=== PATIENT | female | born 1945 | race Caucasian/White ===

== ENCOUNTER 2025-05-13 13:51 | Inpatient (IN) | payer MEDICARE, MEDICAID ==
[~2025-05-13] VITALS: Ht 162.6 cm; Wt 84.4 kg
--- NOTE | 2025-05-13 15:05 | ED.PDOC ---
Psychiatric HPI Comments 79 y.o female with PMHx of COPD and AFIB, presents to the ED via EMS for an evaluation of hallucinations. Patient reports seeing animals such as cats and birds in her room for the past couple days. She also reports that she sits in a rocking chair in her room but states her family tell her she has no chair in her room. Patient has no diagnosed dementia. She is alert and oriented x 4. She denies any pain, auditory hallucinations, SI, or HI. Chief Complaint: Hallucinations Time Seen by MD: 14:52 Reviewed Notes: Nurses Notes, Medications, Allergies Information Source: Patient Mode of Arrival: EMS Severity: Able to Control Self Severity of Pain: None Severity of Mental Status: Moderate Severity of Symptoms: Moderate Timing: Hours Duration: Since onset Presents with: None Ingestion: None Circumstance: None Current substance abuse: None Stressors: None History of: None Associated signs and symptoms: Hallucinations Past Medical History PAST MEDICAL HISTORY: AFIB, COPD Surgical History: Denies all surgeries MACHINE SANDER History: No Pertinent MACHINE SANDER History Family History Family History: Reviewed,noncontributory to illness Social History Smoker: Non-Smoker Alcohol: Denies ETOH Use Drugs: Denies Drug Use Lives In: Home Constitutional: denies: chills, diaphoresis, fatigue, fever, malaise, sweats, weakness, others EENTM: denies: blurred vision, double vision, ear bleeding, ear discharge, ear drainage, ear pain, ear ringing, eye pain, eye redness, hearing loss, mouth pain, mouth swelling, nasal discharge, nose bleeding, nose congestion, nose pain, photophobia, tearing, throat pain, throat swelling, voice changes, others Respiratory: denies: cough, hemoptysis, orthopnea, SOB at rest, shortness of breath, SOB with excertion, stridor, wheezing, others Cardiovascular: denies: chest pain, dizzy spells, diaphoresis, Dyspnea on exertion, edema, irregular heart beat, left arm pain, lightheadedness, palpitations, PND, syncope, others Gastrointestinal: denies: abdomen distended, abdominal pain, blood streaked bowels, constipated, diarrhea, dysphagia, difficulty swallowing, hematemesis, melena, nausea, poor appetite, poor fluid intake, rectal bleeding, rectal pain, vomiting, others Genitourinary: denies: abnormal vagina bleeding, burning, dyspareunia, dysuria, flank pain, frequency, hematuria, incontinence, pain, , vagina discharge, urgency, others Neurological: denies: dizziness, fainting, headache, left sided numbness, left sided weakness, numbness, paresthesia, pre-existing deficit, right sided numbness, right sided weakness, seizure, speech problems, tingling, tremors, weakness, others Musculoskeletal: denies: back pain, gout, joint pain, joint swelling, muscle pain, muscle stiffness, neck pain, others Integumetry: denies: bruises, change in color, change in hair/nails, dryness, laceration, lesions, lumps, rash, wounds, others Allergic/Immunocompromised: denies: Difficulty Healing, Frequent Infections, Hives, Itching, others Hematologic/Lymphatic: denies: anemia, blood clots, easy bleeding, easy bruising, swollen glands, others Endocrine: denies: excessive hunger, excessive sweating, excessive thirst, excessive urination, flushing, intolerance to cold, intolerance to heat, unexplained weight gain, unexplained weight loss, others Psychiatric: reports: others (hallucinations ); denies: anxiety, bipolar disorder, depression, hopeless, panic disorder, schizophrenia, sleepless, suicidal All Other Systems: Reviewed and Negative Physical Exam General Appearance: Moderate Distress HEENT: Normal ENT Inspection, Pharynx Normal, TMs Normal Neck: Full Range of Motion, Non-Tender, Normal, Normal Inspection Respiratory: Chest Non-Tender, Lungs Clear, No Accessory Muscle Use, No Respiratory Distress, Normal Breath Sounds Cardiovascular: No Edema, No JVD, No Murmur, No Gallop, Normal Peripheral Pulses, Regular Rate/Rhythm Breast Exam: Deferred Gastrointestinal: No Organomegaly, Non Tender, No Pulsatile Mass, Normal Bowel Sounds, Soft Genitalia: Deferred Pelvic: Deferred Rectal: Deferred Extremities: No calf tenderness, No pedal edema, Swelling (Bilateral lower extremity) Musculoskeletal : Apperance: Normal Neurologic: Alert, No Motor Deficits, No Sensory Deficits Cerebellar Function: NOT DONE Reflexes: NOT DONE Skin: Normal Color Lymphatic: No Adenopathy Was a procedure done? Was a procedure done?: No Psych Differential Dx Psych. Differential Dx: Schizoprenia Other Differentail Dx New onset dementia X-Ray, Labs, Meds, VS Vital Signs Date Time Temp Pulse Resp B/P (MAP) Pulse Ox O2 Delivery O2 Flow Rate FiO2 05/13/25 14:00 98.2 93 18 132/68 94 98.2 Lab Test 05/13/25 14:16 Range/Units White Blood Count 14.6 H 4.4-10.8 10^3/uL Red Blood Count 4.75 4.0-5.20 10^6/uL Hemoglobin 13.4 12.2-16.2 g/dL Hematocrit 41.0 36.0-46.0 % Mean Corpuscular Volume 86.3 80.0-100.0 fL Mean Corpuscular Hemoglobin 28.3 28.0-32.0 pg Mean Corpuscular Hemoglobin Concent 32.8 32.0-36.0 g/dL Red Cell Distribution Width 14.8 H 11.8-14.3 % Platelet Count 391 140-450 10^3/uL Mean Platelet Volume 9.8 6.9-10.8 fL Neutrophils (%) (Auto) 81.1 H 37.0-80.0 % Lymphocytes (%) (Auto) 10.5 10.0-50.0 % Monocytes (%) (Auto) 7.2 0.0-12.0 % Eosinophils (%) (Auto) 0.6 0.0-7.0 % Basophils (%) (Auto) 0.6 0.0-2.0 % Neutrophils # (Auto) 11.8 H 1.6-8.6 10 ^3/uL Lymphocytes # (Auto) 1.5 0.4-5.4 10 ^3/uL Monocytes # (Auto) 1.1 0-1.3 10 ^3/uL Eosinophils # (Auto) 0.1 0-0.8 10 ^3/uL Basophils # (Auto) 0.1 0-0.2 10 ^3/uL Nucleated Red Blood Cells 0.0 % Sodium Level 138 136-145 mmol/L Potassium Level 3.5 3.5-5.1 mmol/L Chloride Level 101 98-107 mmol/L Carbon Dioxide Level 27 20-31 mmol/L Anion Gap 10 5-15 Blood Urea Nitrogen 26 H 9-23 mg/dL Creatinine 0.96 0.550-1.02 mg/dL Glomerular Filtration Rate Calc 60 >90 mL/min BUN/Creatinine Ratio 27.1 H 10.0-20.0 Serum Glucose 126 H 74-106 mg/dL Calcium Level 9.6 8.7-10.4 mg/dL Troponin I High Sensitivity 14 </=34 ng/L Patient alert. Complaining of seeing objects. Vitals stable. Answering questions. Cardiac marker within normal limits. WBC slightly elevated. Hemoglobin within normal limits. Blood sugar slightly elevated. On examination she does not have bilateral lower extremity swelling. Possible urinary tract infection. Explained to the patient that she will be admitted. Continue to monitor. Time of 1ST Reevaluation: 15:00 Reevaluation 1ST: Unchanged Patient Education/Counseling: Diagnosis, Treatment, Prognosis Family Education/Counseling: No Family Present Departure 1 Departure Time of Disposition: 16:39 Impression: Primary Impression: CHF (congestive heart failure) Qualified Codes: I50.43 - Acute on chronic combined systolic (congestive) and diastolic (congestive) heart failure Additional Impressions: Hyperglycemia Urinary tract infection Qualified Codes: N30.00 - Acute cystitis without hematuria Disposition: ADMITTED INPATIENT Admit to: Med Surg Condition: Guarded Critical Care Note Critical Care Time?: No Stability Stability form required: No I personally scribed for GONZÁLEZ PALACIOS MD ([email or web address]) on 05/13/25 at 15:05. Electronically submitted by Alisa Guillen ([facility]). GONZÁLEZ PALACIOS MD May 13, 2025 15:05
[2025-05-13 15:24] LABS: Hematocrit 41.0 % (36.0-46.0); Hemoglobin 13.4 g/dL (12.2-16.2); Mean Corpuscular Hemoglobin 28.3 pg (28.0-32.0); Mean Corpuscular Volume 86.3 fL (80.0-100.0); Nucleated Red Blood Cells % 0.0 %
[2025-05-13 15:38] LABS: Chloride 101 mmol/L (98-107); Sodium 138 mmol/L (136-145)
[2025-05-13 15:39] LABS: Anion Gap 10 (5-15); Calcium 9.6 mg/dL (8.7-10.4); Carbon Dioxide 27 mmol/L (20-31)
[2025-05-13 15:44] LABS: BUN/Creatinine Ratio 27.1 (10.0-20.0)
[2025-05-13 15:49] LABS: Blood Urea Nitrogen 26 mg/dL (9-23); Glucose 126 mg/dL (74-106); Potassium 3.5 mmol/L (3.5-5.1)
[2025-05-13 18:22] VITALS: PULSE 79; RESP 17; O2SAT 93
[2025-05-13 18:48] LABS: Urine Amorphous Crystal FEW /hpf (None Seen); Urine Protein, UAD 1+ (Negative); Urine WBC Clumps PRESENT /hpf (None Seen)
[2025-05-13] MEDS: FUROSEMIDE 40 MG/4 ML VIAL IV ONE (18:51)
[2025-05-13] MEDS ORDERED: IPRATROPIUM BROM 0.5 MG/2.5ML INH SOL NEB PRN (22:15)
[2025-05-13] MEDS ORDERED: SODIUM CHLORIDE 0.9% 1,000 ML IV ONE (22:15)
[2025-05-13] MEDS ORDERED: ALBUTEROL SULF 2.5 MG/0.5ML(0.5%) NEB SOLN NEB PRN (22:15)
[2025-05-13 22:37] LABS: Alanine Aminotransferase 15.0 U/L (7-40); Albumin 4.3 g/dL (3.2-4.8); Bilirubin, Direct 0.3 mg/dL (<0.3); Bilirubin, Total 0.7 mg/dL (0.2-1.0); Total Protein 7.6 g/dL (5.7-8.2)
[2025-05-13 22:41] LABS: Alkaline Phosphatase 235.0 U/L (46-116)
[2025-05-13 22:47] VITALS: BP 117/36; PULSE 79; RESP 17; TEMP 98.3; O2SAT 94
--- NOTE | 2025-05-13 23:12 | DVH ---
CHEST RADIOGRAPH Indication: shortness of breath Technique: Single frontal view of the chest was obtained COMPARISON: CT CHEST WO on DOS: 07/10/24 FINDINGS: Lines and Tubes: None Lungs: Mild diffuse increased prominence of the pulmonary vasculature. No evidence of focal consolida tion. Pleura: No effusion. No pneumothorax. Cardiomediastinal contours: Unremarkable Bones: Unremarkable IMPRESSION: 1. Mild diffuse increased prominence of the pulmonary vasculature.
[2025-05-14] VITALS (7 sets, daily range): BP systolic 122–130; BP diastolic 68–69; PULSE 72–117; RESP 17–22; TEMP 97.5–97.6; O2SAT 95–96
[2025-05-14 00:04] LABS: Lactic Acid w/Reflex 2.1 mmol/L (0.4-2.0)
--- NOTE | 2025-05-14 02:49 | DVHHPRES ---
History of Present Illness Resident Creating Document: THOMASGRACE RESIDENT History of Present Illness This is a 79-year-old female with a past medical history of COPD on 2 L of oxygen at home for the past 40 years, AFib, history of stroke 7 years ago (left- sided weakness more in the leg) and left leg DVT ( diagnosed at [facility] where she was recently hospitalized for it on 05/10/2025) came to the emergency room via EMS for evaluation of hallucinations. As per patient she reports seeing animals such as cats, dogs, birds in her room for the past 3 days. She lives with her sister who told her that she is being paranoid. Patient reports that she sits in her rocking chair in her room but her sister tells her that she there is no chair in the room. Patient also says that she feels like her room is being decorated but her sister told her it is not true. on inquiry, patient states that she knows they are not there but sees them anyway. She is alert and oriented x4 and denies any pain, auditory hallucinations, history of dementia or any other symptoms. She does give a history of bumps in her vagina that she has had for a long time and reports she uses a cream that helps it go away. She denies any fever, chills, nausea, vomiting, abdominal pain, chest pain or shortness of breath. On admission patient was septic with WBC count of 14.6, pulse rate 93 and lactic acid of 2.1. blood pressure is 117/36 mmHg, pulse oximetry 95% in room air temperature is 98.3. urine analysis shows urine color orange, extremely turbid, urinary protein 1+, ketone 1+, blood 3+, leukocyte esterase 3+, RBC 35, WBC clumps present, WBC 219, squamous epithelial cells moderate, calcium oxalate crystals moderate, amorphous crystals few, urine bacteria many, urine mucus few. We are admitting the patient for further workup and evaluation. Past medical history: COPD for 40 years on 2 L of oxygen at home, AFib, stroke 7 years ago, left leg DVT Past surgical history: Cholecystectomy 1 year ago Family history: Mother and sister had breast cancer Social history: patient used to smoke 2 packs per day for 30 years but has quit 7 years ago, she does not drink anymore but used to occasionally drink wine years ago, she does not take any drugs Home medication: Eliquis 5 mg, Ellipta inhaler Allergies: Sulfa drugs PCP: Dr. [place] at [place] [id number] Code status: Full code Review of Systems Allergies: Coded Allergies: Sulfa Antibiotics (Verified Allergy, Unknown, 05/13/25) Medications Current Medications Medications Dose Ordered Sig/Nas Route Start Time Stop Time Status Last Admin Dose Admin Ondansetron HCl 4 mg Q4HP PRN IV 05/13/25 22:15 Acetaminophen 650 mg Q6HP PRN PO 05/13/25 22:15 Enoxaparin Sodium 80 mg Q12HR SC 05/14/25 10:00 Ipratropium [place] 0.5 mg Q4HPRN PRN NEB 05/13/25 22:15 Albuterol 2.5 mg Q4HPRN PRN NEB 05/13/25 22:15 Ceftriaxone Sodium 50 ml @ 100 mls/hr DAILY@1700 IV 05/14/25 17:00 Exam Vital Signs Vital Signs Date Time Temp Pulse Resp B/P (MAP) Pulse Ox O2 Delivery O2 Flow Rate FiO2 05/14/25 00:17 95 Room Air* 0 21 05/13/25 22:47 98.3 79 17 117/36 98.3 Exam General Appearance: Alert, Oriented X3, Cooperative, Not in acute distress HEENT: Atraumatic, Mucous membranes moist/pink, nasal cannula in place Respiratory: Clear to auscultation, Normal air movement, No added sounds Cardiovascular: Regular rate, Normal S1, Normal S2, No murmurs Abdominal: Active bowel sounds, Soft, no distention, no tenderness on palpation Extremities: No edema, Normal pulses, No tenderness/swelling Skin: No Significant rash, except past surgical scars Neuro: Normal speech, weakness in bilateral legs, more in the right leg with strength 1/5 in the right leg and 3/5 in the left leg Psych/Mental Status: Mental status NL, Mood NL Labs/Xrays Labs Test 05/14/25 02:25 05/13/25 18:27 05/13/25 14:16 05/13/25 14:15 Range/Units Urine Color [place] H Yellow Urine Clarity Ex.turbid Clear Urine pH 6.0 5.0-9.0 Urine Specific [place] 1.027 1.001-1.035 Urine Protein 1+ H Negative Urine Ketones 1+ H Negative Urine Blood 3+ H Negative /uL Urine Nitrite Negative Negative Urine Bilirubin Negative Negative Urine Urobilinogen 3 H Negative mg/dL Urine Leukocyte Esterase 3+ Negative /uL Urine RBC 35 0 - 4 /hpf Urine WBC Clumps Present None Seen /hpf Urine Microscopic WBC 219 H 0-5 /HPF Urine Squamous Epithelial Cells Mod <5 /hpf Urine Calcium Oxalate Crystals Mod None Seen Urine Amorphous Crystals Few None Seen /hpf Urine Bacteria Many H None Seen /hpf Urine Mucus Few None Seen Urine Glucose Normal Normal mg/dL White Blood Count 14.6 H 4.4-10.8 10^3/uL Red Blood Count 4.75 4.0-5.20 10^6/uL Hemoglobin 13.4 12.2-16.2 g/dL Hematocrit 41.0 36.0-46.0 % Mean Corpuscular Volume 86.3 80.0-100.0 fL Mean Corpuscular Hemoglobin 28.3 28.0-32.0 pg Mean Corpuscular Hemoglobin Concent 32.8 32.0-36.0 g/dL Red Cell Distribution Width 14.8 H 11.8-14.3 % Platelet Count 391 140-450 10^3/uL Mean Platelet Volume 9.8 6.9-10.8 fL Neutrophils (%) (Auto) 81.1 H 37.0-80.0 % Lymphocytes (%) (Auto) 10.5 10.0-50.0 % Monocytes (%) (Auto) 7.2 0.0-12.0 % Eosinophils (%) (Auto) 0.6 0.0-7.0 % Basophils (%) (Auto) 0.6 0.0-2.0 % Neutrophils # (Auto) 11.8 H 1.6-8.6 10 ^3/uL Lymphocytes # (Auto) 1.5 0.4-5.4 10 ^3/uL Monocytes # (Auto) 1.1 0-1.3 10 ^3/uL Eosinophils # (Auto) 0.1 0-0.8 10 ^3/uL Basophils # (Auto) 0.1 0-0.2 10 ^3/uL Nucleated Red Blood Cells 0.0 % Sodium Level 138 136-145 mmol/L Potassium Level 3.5 3.5-5.1 mmol/L Chloride Level 101 98-107 mmol/L Carbon Dioxide Level 27 20-31 mmol/L Anion Gap 10 5-15 Blood Urea Nitrogen 26 H 9-23 mg/dL Creatinine 0.96 0.550-1.02 mg/dL Glomerular Filtration Rate Calc 60 >90 mL/min BUN/Creatinine Ratio 27.1 H 10.0-20.0 Serum Glucose 126 H 74-106 mg/dL Calcium Level 9.6 8.7-10.4 mg/dL Troponin I High Sensitivity 14 </=34 ng/L B-Type Natriuretic Peptide 73.31 0-100 pg/mL Hemoglobin A1c 5.5 <5.7 % A1C Total Bilirubin 0.7 0.2-1.0 mg/dL Direct Bilirubin 0.3 <0.3 mg/dL Aspartate Amino Transferase (AST) 30 13-40 U/L Alanine Aminotransferase (ALT) 15 7-40 U/L Alkaline Phosphatase 235 H 46-116 U/L Total Protein 7.6 5.7-8.2 g/dL Albumin 4.3 3.2-4.8 g/dL Thyroid Stimulating Hormone (TSH) 4.14 0.55-4.78 uIU/mL SEPSIS Sepsis Screen Date sepsis recognized/suspect: May 13, 2025 Time Sepsis recognized/suspect: 1821 Recent Procedure: No On Antibiotic Therapy: No Respiratory Rate >20: No Heart Rate >90: No Temp<36 C (96.8 F) or >38.3 C: No SBP <90 or MAP <65 mmHG: No New Acute Mental Status Change: No Is the patient on CPAP, BIPAP,: No Physician Orders Admit (05/13/25 22:05) Code Status (05/13/25 22:05) Oxygen Per Hour (05/13/25 22:05) Ondansetron Hcl (Zofran) (05/13/25 22:15) Fall Risk Precautions In Place QSHIFT (05/13/25 22:05) Complete Blood Count (05/14/25 04:00) Comprehensive Metabolic Panel (05/14/25 04:00) Cardiac Diet-2gna,Lofat,Lochol (05/14/25 Breakfast) Condition: Unstable (05/13/25 22:05) Acetaminophen Tablet (Tylenol Tablet) (05/13/25 22:15) Oxygen By Nasal Cannula (05/13/25 22:05) Stat Ekg For Chest Pain (05/13/25 22:05) Urine Bacterial Culture (05/13/25 22:12) Chest Xray 1 View (05/13/25 22:12) Enoxaparin Sodium (Lovenox) (05/14/25 10:00) Ipratropium Medneb (Atrovent Medneb) (05/13/25 22:15) Albuterol Medneb (Ventolin Medneb) (05/13/25 22:15) Ceftriaxone 1gm/50ml (Rocephin) (05/14/25 17:00) Lactic Acid W/ Reflex Order (05/14/25 06:00) Vital Signs Date Time Temp Pulse Resp B/P (MAP) Pulse Ox O2 Delivery O2 Flow Rate FiO2 05/14/25 00:17 95 Room Air* 0 21 05/14/25 00:17 95 Room Air 0.0 05/13/25 22:47 98.3 79 17 117/36 94 0.0 21 98.3 05/13/25 18:51 117/40 Laboratory Tests Test 05/13/25 23:15 05/14/25 02:25 Lactic Acid Level 2.1 mmol/L (0.4-2.0) *H Pending Medications Medications Dose Ordered Sig/Nas Route Start Time Stop Time Status Last Admin Dose Admin Ceftriaxone Sodium 50 ml @ 100 mls/hr ONCE ONCE IV 05/13/25 16:45 05/13/25 17:14 DC 05/13/25 18:51 100 MLS/HR Furosemide 40 mg ONCE ONCE IV 05/13/25 16:45 05/13/25 16:46 DC 05/13/25 18:51 40 MG Assessment/Plan Assessment/Plan #Sepsis due to urinary tract infection #Metabolic encephalopathy due to above -urine analysis shows-urine color orange, extremely turbid, urinary protein 1+, ketone 1+, blood 3+, leukocyte esterase 3+, RBC 35, WBC clumps present, WBC 219, squamous epithelial cells moderate, calcium oxalate crystals moderate, amorphous crystals few, urine bacteria many, urine mucus few. -urine culture -Blood culture -Lactic acid 2.1>2.3 -normal saline 0.9% bolus 500ml given -TSH Normal at 4.14 -Ceftriaxone 1 g IV daily -Zofran 4 mg IV q.4 PRN -Acetaminophen 650 mg q.6 p.o. # AFib with RVR #History of left leg DVT -EKG shows AFib with RVR, ST-depression V1-V3 -Lovenox 1 mg/kg 80 mg subcutaneous b.i.d. scheduled -IV amiodarone drip b.i.d. #COPD, not under exacerbation -Med neb albuterol 2.5 mg q.4 PRN -Med neb ipratropium 0.5 mg q.4 PRN #Class 1 obesity, BMI 30.7 -patient was counseled regarding lifestyle modification, healthier diet, need of exercise and weight loss over 7 minutes DVT prophylaxis: Lovenox 1 mg/kg 80 mg subcutaneous b.i.d. scheduled Diet: Cardiac diet Goals of care discussed with the patient for more than 27 minutes: Full code status Case discussed with Dr. Summers, patient Plan discussed with: Patient My Orders Orders - GRACE THOMAS RESIDENT Procedure Category Date Status Time Admit ADMIT 05/13/25 Transmitted 22:05 Code Status CODE 05/13/25 Transmitted 22:05 Oxygen Per Hour RT 05/13/25 Transmitted 22:05 Ondansetron Hcl PHA 05/13/25 In Process (Zofran) 22:15 Fall Risk Precautions BATSHEVA 05/13/[address] 22:05 Complete Blood Count LAB 05/14/25 Logged 04:00 Comprehensive LAB 05/14/25 Logged Metabolic Panel 04:00 Cardiac DIET 05/14/25 Transmitted Diet-2gna,Lofat,Lochol Breakfast Condition: Unstable BATSHEVA 05/13/25 In Process 22:05 Acetaminophen Tablet PHA 05/13/25 In Process (Tylenol Tablet) 22:15 Oxygen By Nasal RT 05/13/25 Transmitted Cannula 22:05 Stat Ekg For Chest BATSHEVA 05/13/25 In Process Pain 22:05 Urine Bacterial TIFFANI 05/13/25 In Process Culture 22:12 Chest Xray 1 View XY 05/13/25 Resulted 22:12 Enoxaparin Sodium PHA 05/14/25 In Process (Lovenox) 10:00 Ipratropium Medneb PHA 05/13/25 In Process (Atrovent Medneb) 22:15 Albuterol Medneb PHA 05/13/25 In Process (Ventolin Medneb) 22:15 Ceftriaxone 1gm/50ml PHA 05/14/25 In Process (Rocephin) 17:00 Lactic Acid W/ Reflex LAB 05/14/25 Logged Order 06:00 Date of Service: May 14, 2025 Billing Provider: LESLIE SUMMERS MD [facility] RESIDENT May 14, 2025 02:49
[2025-05-14] MEDS: SODIUM CHLORIDE 0.9% 500 ML IV ONE (03:45)
[2025-05-14] MEDS: AMIODARONE BOLUS KIT 100 ML IV ONE (05:06)
[2025-05-14] MEDS: AMIODARONE 360mg/200mL PREMIX 200 ML IV ONE (05:30)
[2025-05-14] MEDS: ENOXAPARIN SOD 80 MG/0.8ML SYRINGE SC ONE (05:53)
[2025-05-14 07:45] LABS: Hematocrit 38.7 % (36.0-46.0); Hemoglobin 12.6 g/dL (12.2-16.2); Mean Corpuscular Hemoglobin 27.8 pg (28.0-32.0); Mean Corpuscular Volume 85.6 fL (80.0-100.0); Nucleated Red Blood Cells % 0.1 %
[2025-05-14 07:53] LABS: Albumin 3.9 g/dL (3.2-4.8); Anion Gap 14 (5-15); Calcium 9.2 mg/dL (8.7-10.4); Carbon Dioxide 24 mmol/L (20-31); Chloride 101 mmol/L (98-107); Sodium 139 mmol/L (136-145); Total Protein 6.9 g/dL (5.7-8.2)
[2025-05-14 07:58] LABS: Alkaline Phosphatase 202 U/L (46-116); Bilirubin, Total 0.3 mg/dL (0.2-1.0); Glucose 112 mg/dL (74-106); Potassium 4.3 mmol/L (3.5-5.1)
[2025-05-14 07:59] LABS: BUN/Creatinine Ratio 16.8 (10.0-20.0)
[2025-05-14 08:00] LABS: Alanine Aminotransferase 13 U/L (7-40); Blood Urea Nitrogen 35 mg/dL (9-23)
[2025-05-14] MEDS ORDERED: ENOXAPARIN SOD 100 MG/1 ML SYRINGE SC SCH (10:00)
[2025-05-14] MEDS: AMIODARONE 360mg/200mL PREMIX 200 ML IV SCH (11:20)
--- NOTE | 2025-05-14 12:30 | ECG ---
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
[2025-05-14 13:52] LABS: Chloride 103 mmol/L (98-107); Potassium 4.2 mmol/L (3.5-5.1); Sodium 140 mmol/L (136-145)
[2025-05-14 13:53] LABS: Anion Gap 12 (5-15); Calcium 9.3 mg/dL (8.7-10.4); Carbon Dioxide 25 mmol/L (20-31)
[2025-05-14 13:58] LABS: BUN/Creatinine Ratio 23.6 (10.0-20.0); Blood Urea Nitrogen 45 mg/dL (9-23); Glucose 108 mg/dL (74-106)
[2025-05-14] MEDS: SODIUM CHLORIDE 0.9% 1,000 ML IV ONE (14:14)
--- NOTE | 2025-05-14 16:43 | ECG ---
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
--- NOTE | 2025-05-14 20:15 | DVHPNRES ---
Progress Note Date Seen: May 14, 2025 Resident Creating Document: RIP JAFFE RESIDENT Medical Necessity Reason Pt with a Central, PICC or Fol: No Subjective Review of Systems Cheryl Singh Is a 79-year-old female with a past medical history of COPD (O2 2 L of oxygen at home) AFib, CVA, and left leg DVT ( diagnosed at [facility] where she was recently hospitalized for it on 05/10/2025). The patient came to the ED from home via EMS with chief complain of 3 days of visual hallucinations. The patient reports seeing animals such as cats, dogs, birds in her room associated with malaise and general weakness. The patient denies fever, chills, diarrhea, dysuria, frequency, nausea, vomiting, abdominal pain, chest pain or shortness of breath. In the ED initial labs showed: WBC: 14.6x10e3/ul. and, lactic acid of 2.1. Vitals: HR: 93, BP: 117/36 mmHg, O2sat 95% in room air and temperature 98.3. UA shows: [place] urine, extremely turbid, urinary protein 1+, ketone 1+, blood 3+, leukocyte esterase 3+, RBC 35, WBC clumps present, WBC 219, squamous epithelial cells moderate, calcium oxalate crystals moderate, amorphous crystals few, urine bacteria many, urine mucus few. The patient was started on Ceftriaxone IV. The initial EKG showed aFib, the patient was initiated on amiodarone and enoxaparin. On past medical history review: COPD for 40 years on 2 L of oxygen at home, AFib, stroke 7 years ago, left leg DVTPast surgical history: Cholecystectomy 1 year ago Family history: Mother and sister had breast cancer Social history: patient used to smoke 2 packs per day for 30 years but has quit 7 years ago, she does not drink anymore but used to occasionally drink wine years ago, she does not take any drugs. Home medication: Eliquis 5 mg, Ellipta inhaler Allergies: Sulfa drugs. Admission course: Today, 05/14/25 the patient is alert, oriented x3. The patient report feeling better. VS: BP 112/48mmHg, HR: 121bpm. Repeated EKG showed atrial fibrillation, the patient is still on amiodarone and enoxaparin. The patient will continue in Telemetry. ECHO and BMP were ordered. Blood and urine cultures showed no growth after 24hrs of incubation. We tried to contact the patient's family, the telephone number on records seems disconnected, a social consult was place to try to contact the patient's family. We will continue following up with this patient. ROS: Constitutional: No: Fever, Chills, Sweats, Weakness, Malaise, Other Eyes: No: Pain, Vision change, Conjunctivae inflammation, Eyelid inflammation, Other, Redness ENT: No: Ear pain, Ear discharge, Nose pain, Nose discharge, Nose congestion, Mouth pain, Mouth swelling, Throat pain, Throat swelling, Other Respiratory: No: Cough, Dry, Shortness of breath, SOB with excertion, Wheezing, Hemoptysis, Pleuritic Pain, Sputum, Wheezing, Other Cardiovascular: No: Chest Pain, Palpitations, Orthopnea, Paroxysmal Noc. Dyspnea, Edema, Lt Headedness, Other Gastrointestinal: No: Nausea, Vomiting, Abdominal Pain, Diarrhea, Constipation, Melena, Hematochezia, Other Genitourinary: No Dysuria, No Frequency, No Incontinence, No Hematuria, No Retention, No Other Musculoskeletal: Denies pain or motor deficit. Skin: No: Rash, Lesions, Jaundice, Bruising, Other Neurological: The patient reports hallucinations of any kind at this time. No: Weakness, Numbness, Incoordination, Change in speech, Confusion, Seizures, Other Allergies: Not know allergies. Objective vital signs Vital Sign Date Time Temp Pulse Resp B/P (MAP) Pulse Ox O2 Delivery O2 Flow Rate FiO2 05/14/25 18:45 95 Nasal Cannula* 2 28 05/14/25 17:30 97.6 73 18 122/68 (86) 97.6 Total Intake and Output 05/13/25 05/13/25 05/14/25 15:00 23:00 07:00 Intake Total 50 ml 600 ml Balance 50 ml 600 ml medications Current Medications Medications Dose Ordered Sig/Nas Route Start Time Stop Time Status Last Admin Dose Admin Ondansetron HCl 4 mg Q4HP PRN IV 05/13/25 22:15 Acetaminophen 650 mg Q6HP PRN PO 05/13/25 22:15 Ipratropium [place] 0.5 mg Q4HPRN PRN NEB 05/13/25 22:15 Albuterol 2.5 mg Q4HPRN PRN NEB 05/13/25 22:15 Ceftriaxone Sodium 50 ml @ 100 mls/hr DAILY@1700 IV 05/14/25 17:00 05/14/25 17:00 100 MLS/HR Amiodarone HCL/ Dextrose 200 ml @ 16.66 mls/ hr Q12H IV 05/14/25 11:00 05/14/25 11:20 16.66 MLS/HR Enoxaparin Sodium 80 mg Q12HR SC 05/14/25 22:00 Examination General Appearance: Alert, Oriented X3, Cooperative, Not in acute distress HEENT: Atraumatic, Mucous membranes moist/pink Respiratory: Clear to auscultation, Normal air movement, No added sounds Cardiovascular: Regular rate, Normal S1, Normal S2, No murmurs Abdominal: Active bowel sounds, Soft, no distention, no tenderness Extremities: No edema, Normal pulses, No tenderness/swelling Skin /MSK: no Significant rash, Tenderness on palpation of right scapular region, left shoulder Neuro: Normal speech, sensorimotor deficits none Psych/Mental Status: Mental status NL, Mood NL, no hallucination of any kind at this time. laboratory and microbiology Laboratory Tests 05/14/25 13:31 05/14/25 07:17 Test 05/14/25 13:31 Range/Units Serum Glucose 108 H 74-106 mg/dL Microbiology Date/Time Source Procedure Growth Status 05/13/25 18:50 Blood Blood Culture - Preliminary NO GROWTH AFTER 24 HOURS OF INCUBATION. Resulted Problem List/Assessment/Plan Problem List/Assessment/Plan #Sepsis due to complicated urinary tract infection #Acute Metabolic encephalopathy likely due to above, -Blood culture negative at this time. -Pending urine culture -Lactic acid improved: on 05/14/25 is 1.4 -normal saline 0.9% bolus 500ml given -TSH Normal at 4.14 -Ceftriaxone 1 g IV daily -Zofran 4 mg IV q.4 PRN -Acetaminophen 650 mg q.6 p.o. # AFib with RVR #History of left leg DVT -05/14/25 EKG shows AFib with RVR -Lovenox 1 mg/kg 80 mg subcutaneous b.i.d. scheduled -IV amiodarone drip b.i.d. -Cont treating underlying source of infection which might be triggering AFIB #Possible Delirium due to UTI and sepsis -Continue antibiotics, Ceftriaxone 1 g IV daily #COPD, not under exacerbation -Med neb albuterol 2.5 mg q.4 PRN -Med neb ipratropium 0.5 mg q.4 PRN #Class 1 obesity, BMI 30.7 -patient was counseled regarding lifestyle modification, healthier diet, need of exercise and weight loss over 7 minutes DVT prophylaxis: Lovenox 1 mg/kg 80 mg subcutaneous b.i.d. scheduled Diet: Cardiac diet Goals of care discussed with the patient for more than 35 minutes: Code Status: Full code PCP: Dr. Morley. Case discussed with Dr. Summers Social consult was placed today to try to contact patient's family. Plan discussed with: Patient My Orders My Orders Orders - RIP JAFFE RESIDENT Procedure Category Date Status Time Sodium Chloride 0.9% PHA 05/14/25 In Process 13:30 Date of Service: May 14, 2025 Billing Provider: LESLIE SUMMERS MD Common Visit Codes: [id number] INP/OBS CARE(HIGH) RIP JAFFE RESIDENT May 14, 2025 20:15 KAYLA KELLY RESIDENT May 14, 2025 21:52 LESLIE SUMMERS MD May 15, 2025 11:50
[2025-05-14] MEDS: ENOXAPARIN SOD 100 MG/1 ML SYRINGE SC SCH (21:34)
[2025-05-15] VITALS (8 sets, daily range): BP systolic 128–147; BP diastolic 54–74; PULSE 77–89; RESP 16–17; TEMP 97.9–98.4; O2SAT 94–97
[2025-05-15 06:01] LABS: Hematocrit 38.7 % (36.0-46.0); Hemoglobin 12.5 g/dL (12.2-16.2); Mean Corpuscular Hemoglobin 28.5 pg (28.0-32.0); Mean Corpuscular Volume 88.4 fL (80.0-100.0); Nucleated Red Blood Cells % 0.0 %
[2025-05-15 06:14] LABS: Anion Gap 13 (5-15); Carbon Dioxide 25 mmol/L (20-31); Chloride 102 mmol/L (98-107); Sodium 140 mmol/L (136-145)
[2025-05-15 06:15] LABS: Calcium 9.3 mg/dL (8.7-10.4)
[2025-05-15 06:20] LABS: BUN/Creatinine Ratio 26.4 (10.0-20.0); Glucose 104 mg/dL (74-106)
[2025-05-15 06:27] LABS: Blood Urea Nitrogen 34 mg/dL (9-23); Potassium 3.2 mmol/L (3.5-5.1)
[2025-05-15] MEDS: HYALURONIDASE 150 UNIT/1 ML SUBCUT ONE (09:23)
[2025-05-15] MEDS: POTASSIUM CHL 20 Meq TABLET PO ONE (09:23)
[2025-05-15] MEDS: AMIODARONE HCL 200 MG TAB PO SCH (11:03)
--- NOTE | 2025-05-15 12:24 | DVHPNRES ---
Progress Note Date Seen: May 15, 2025 Resident Creating Document: RIP JAFFE RESIDENT Medical Necessity Reason Pt with a Central, PICC or Fol: No Subjective Review of Systems Cheryl Singh Is a 79-year-old female with a past medical history of COPD (O2 2 L of oxygen at home) AFib, CVA, and left leg DVT ( diagnosed at [facility] where she was recently hospitalized for it on 05/10/2025). The patient came to the ED from home via EMS with chief complain of 3 days of visual hallucinations. The patient reports seeing animals such as cats, dogs, birds in her room associated with malaise and general weakness. The patient denies fever, chills, diarrhea, dysuria, frequency, nausea, vomiting, abdominal pain, chest pain or shortness of breath. In the ED initial labs showed: WBC: 14.6x10e3/ul. and, lactic acid of 2.1. Vitals: HR: 93, BP: 117/36 mmHg, O2sat 95% in room air and temperature 98.3. UA shows: [place] urine, extremely turbid, urinary protein 1+, ketone 1+, blood 3+, leukocyte esterase 3+, RBC 35, WBC clumps present, WBC 219, squamous epithelial cells moderate, calcium oxalate crystals moderate, amorphous crystals few, urine bacteria many, urine mucus few. The patient was started on Ceftriaxone IV. The initial EKG showed aFib, the patient was initiated on amiodarone and enoxaparin. On past medical history review: COPD for 40 years on 2 L of oxygen at home, AFib, stroke 7 years ago, left leg DVTPast surgical history: Cholecystectomy 1 year ago Family history: Mother and sister had breast cancer Social history: patient used to smoke 2 packs per day for 30 years but has quit 7 years ago, she does not drink anymore but used to occasionally drink wine years ago, she does not take any drugs. Home medication: Eliquis 5 mg, Ellipta inhaler Allergies: Sulfa drugs. Admission course: On 05/14/25 the patient is alert, oriented x3. The patient report feeling better. VS: BP 112/48mmHg, HR: 121bpm. Repeated EKG showed atrial fibrillation, the patient is still on amiodarone and enoxaparin. The patient will continue in Telemetry. ECHO and BMP were ordered. Blood and urine cultures showed no growth after 24hrs of incubation. We tried to contact the patient's family, the telephone number on records seems disconnected, a social consult was place to try to contact the patient's family. Today, 05/15/23 the patient reports she is feeling better. VS: BP 128/74mmHg, HR: 79bpm. The patient has coverted to sinus rhythm today, HR is 79bpm. Amiodarone drip has been discontinue and has been changed to oral amiodarone. The patient will continue in Telemetry. ECHO report is till pending. Blood culture showed no growth after 48hrs of incubation. Urine Bacterial Culture Preliminary Report: >100,000 CFU/mL Gram Negative Rods Still ruling out pathogens. We tried to contact the patient's family, the telephone number on records seems disconnected, a social consult was place to try to contact the patient's family. The case was discussed with a tending, the patient will need continue her care in a SNF, a PT and social consult was placed today. We will continue following this patient. ROS: Constitutional: No: Fever, Chills, Sweats, Weakness, Malaise, Other Eyes: No: Pain, Vision change, Conjunctivae inflammation, Eyelid inflammation, Other, Redness ENT: No: Ear pain, Ear discharge, Nose pain, Nose discharge, Nose congestion, Mouth pain, Mouth swelling, Throat pain, Throat swelling, Other Respiratory: No: Cough, Dry, Shortness of breath, SOB with excertion, Wheezing, Hemoptysis, Pleuritic Pain, Sputum, Wheezing, Other Cardiovascular: No: Chest Pain, Palpitations, Orthopnea, Paroxysmal Noc. Dyspnea, Edema, Lt Headedness, Other Gastrointestinal: No: Nausea, Vomiting, Abdominal Pain, Diarrhea, Constipation, Melena, Hematochezia, Other Genitourinary: No Dysuria, No Frequency, No Incontinence, No Hematuria, No Retention, No Other Musculoskeletal: Denies pain or motor deficit. Skin: No: Rash, Lesions, Jaundice, Bruising, Other Neurological: The patient reports no hallucinations of any kind at this time. N o: Weakness, Numbness, Incoordination, Change in speech, Confusion, Seizures, Other Allergies: Not know allergies. Patient reports: No new complaints Objective vital signs Vital Sign Date Time Temp Pulse Resp B/P (MAP) Pulse Ox O2 Delivery O2 Flow Rate FiO2 05/15/25 09:00 98.3 78 16 131/57 (81) 97 98.3 05/14/25 20:00 Nasal Cannula* 2 28 Total Intake and Output 05/14/25 05/14/25 05/15/25 15:00 23:00 07:00 Intake Total 0 ml 200 ml Balance 0 ml 200 ml medications Current Medications Medications Dose Ordered Sig/Nas Route Start Time Stop Time Status Last Admin Dose Admin Ondansetron HCl 4 mg Q4HP PRN IV 05/13/25 22:15 Acetaminophen 650 mg Q6HP PRN PO 05/13/25 22:15 Ipratropium [place] 0.5 mg Q4HPRN PRN NEB 05/13/25 22:15 Albuterol 2.5 mg Q4HPRN PRN NEB 05/13/25 22:15 Ceftriaxone Sodium 50 ml @ 100 mls/hr DAILY@1700 IV 05/14/25 17:00 05/14/25 17:00 100 MLS/HR Enoxaparin Sodium 80 mg Q12HR SC 05/14/25 22:00 05/15/25 09:22 80 MG Amiodarone HCl 200 mg Q12HR PO 05/15/25 10:00 05/15/25 11:03 200 MG laboratory and microbiology Laboratory Tests 05/15/25 05:26 Test 05/15/25 05:26 Range/Units Serum Glucose 104 74-106 mg/dL Microbiology Date/Time Source Procedure Growth Status 05/13/25 18:50 Blood Blood Culture - Preliminary NO GROWTH AFTER 24 HOURS OF INCUBATION. Resulted Problem List/Assessment/Plan Problem List/Assessment/Plan #Sepsis due to urinary tract infection #Acute Metabolic encephalopathy due to above, -Blood and Urine culture negative at 48hours -Lactic acid improved: on 05/14/25 is 1.4 -TSH Normal at 4.14 -Ceftriaxone 1 g IV daily -Zofran 4 mg IV q.4 PRN -Acetaminophen 650 mg q.6 p.o. # AFib converted to Sinus rhythm on 05/15/25 #History of left leg DVT [id number] Score: 6points -05/15/25 EKG shows Sinus rhythm. -Lovenox 1 mg/kg 80 mg subcutaneous b.i.d. scheduled -IV amiodarone drip b.i.d. disconitnue. -Amiodarone oral 200mg po bid #COPD, not under exacerbation -Med neb albuterol 2.5 mg q.4 PRN -Med neb ipratropium 0.5 mg q.4 PRN #Class 1 obesity, BMI 30.7 -patient was counseled regarding lifestyle modification, healthier diet, need of exercise and weight loss over 7 minutes DVT prophylaxis: Lovenox 1 mg/kg 80 mg subcutaneous b.i.d. scheduled Diet: Cardiac diet Goals of care discussed with the patient for more than 35 minutes: Code Status: Full code PCP: Dr. Morley. Cardiology Dr. Silva in [place] Case discussed with Dr. Summers Social consult was placed today to try to contact patient's family. 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
--- NOTE | 2025-05-15 15:19 | DVHSR ---
APPROVED REPORT EXAM: Two-dimensional and M-mode echocardiogram with Doppler and color Doppler. Blood Pressure: 103/41 mmHg INDICATION Atrial Fibrillation RISK FACTORS Height: 5'4", Weight: 178 DIMENSIONS LVDd4.1 (3.8-5.7cm)LA (2D)4.1 (1.9-4.0cm)Aortic Root (2.0-3.7cm) LVDs2.5 (2.5-4.0cm)LA (MM) (1.9-4.0cm)Aortic Cusp Exc (1.5-2.0cm) EF (%) 70.0 (55-70%)Rt. Atrium (1.9-4.0cm)Asc. Aorta cm IVSd1.1 (0.7-1.1cm)RV (D) (1.8-2.4cm) PWd0.7 (0.7-1.1cm) Mitral Valve MitralMitral Stenosis E wave0.63m/sMV Mean GR.mmHg E/A ratio0.02D MVAcm2 Aortic Valve Aortic ValveAortic Stenosis V10.99m/Mel Mean GR.5mmHg V21.50m/Mel Peak GR.9mmHg LVOT Diameter2.0 (1.8-2.4cm)Doppler AVA2.07cm2 Other Information Quality : Technically LimitedRhythm : Technically limited study due to body habitus. Conclusion lvef 55-60% normal rv function left atrium enlarged no severe valve abnormalities noted
[2025-05-15] MEDS: ACETAMINOPHEN 325 MG TAB PO PRN (21:39)
[2025-05-16 01:00] VITALS: BP 146/70; PULSE 93; RESP 17; TEMP 97.1; O2SAT 95
[2025-05-16] MEDS: ONDANSETRON HCL 4 MG/2 ML VIAL IV PRN (02:26)
[2025-05-16 05:00] VITALS: BP 120/47; PULSE 103; RESP 17; TEMP 97.5; O2SAT 96
[2025-05-16] MEDS: ONDANSETRON HCL 4 MG/2 ML VIAL IV ONE (06:30)
[2025-05-16] MEDS: ACETAMINOPHEN 325 MG TAB PO ONE (06:30)
[2025-05-16 06:37] LABS: Chloride 103 mmol/L (98-107); Potassium 3.9 mmol/L (3.5-5.1); Sodium 139 mmol/L (136-145)
[2025-05-16 06:38] LABS: Anion Gap 14 (5-15); Calcium 9.3 mg/dL (8.7-10.4); Carbon Dioxide 22 mmol/L (20-31)
[2025-05-16 06:43] LABS: BUN/Creatinine Ratio 21.8 (10.0-20.0)
[2025-05-16 06:50] LABS: Blood Urea Nitrogen 31 mg/dL (9-23); Glucose 189 mg/dL (74-106)
[2025-05-16 06:55] LABS: Hematocrit 31.7 % (36.0-46.0); Hemoglobin 10.2 g/dL (12.2-16.2); Mean Corpuscular Hemoglobin 27.4 pg (28.0-32.0); Mean Corpuscular Volume 85.0 fL (80.0-100.0); Nucleated Red Blood Cells % 0.0 %
--- NOTE | 2025-05-16 07:34 | ECG ---
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
[2025-05-16] MEDS: SODIUM CHLORIDE 0.9% 1,000 ML IV SCH (08:28)
[2025-05-16 09:00] VITALS: BP 94/61; PULSE 103; RESP 20; TEMP 98.1; O2SAT 95
--- NOTE | 2025-05-16 11:15 | DVH ---
CLINICAL HISTORY: Abdominal pain TECHNIQUE: CT of the abdomen and pelvis was performed without intravenous contrast. This exam was per formed according to our departmental dose optimization program. Up-to-date CT equipment and radiation dose reduction techniques are utilized as appropriate. 21.29 CTDI: 21.29 +13.45 DLP: 1538.28 WID: COMPARISON: None FINDINGS: Lower Thorax: Intraosseous hemangioma in the T8 vertebral body. Linear bibasilar scarring and/or atel ectasis. Basilar consolidation with air bronchograms in the right lower lobe likely scarring and/or a telectasis. Large hiatal hernia. There is exkm-dp-oxwkehop distention of the stomach herniated into t he chest with a caliber change to normal caliber of the stomach in the abdominal cavity.. Normal-size d heart. At least mild coronary artery calcifications partially imaged. Mild ectasia of the ascending thoracic aorta measuring 3.5 cm. Liver and Biliary system: Prior cholecystectomy, otherwise unremarkable. Spleen: Unremarkable. Adrenal Glands and Kidneys: Mild thickening of the bilateral adrenal glands. Small bilateral kidneys. No hydronephrosis or nephrolithiasis. Pancreas and Retroperitoneum: Unremarkable. Aorta and Major Vessels: Aortoiliac vessels are normal in caliber with moderate calcified atheroscler otic plaque. Bowel, Mesentery and Peritoneal space: Normal caliber small and large bowel. There is mild colonic d iverticulosis most pronounced distally. No free intraperitoneal air or fluid collection. Pelvis: Urinary bladder is mildly distended. Mild bladder wall thickening. Prior hysterectomy. No pe lvic lymphadenopathy. Abdominal wall and Osseous Structures: Multilevel lower thoracic and lumbar spondylosis. There is jr ny demineralization. There is a large heterogeneous centrally more hypodense peripherally intermediat e higher density collection in the medial upper right thigh with moderate surrounding soft tissue str anding, measuring at least 8.7 x 10.9 cm on series 2, image 119. IMPRESSION: 1. Large heterogeneous centrally hypodense peripherally intermediate/ high density collection in the medial upper right thigh with surrounding soft tissue stranding. This could reflect a hematoma or abs cess. Evaluation for bleeding is not assessed on noncontrast study. 2. Large hiatal hernia with rwwv-lk-prxyscqm distention of the stomach herniated into the chest and a caliber change to normal of the stomach that is in the abdomen. Gastric Obstruction of the hiatal he rnia is a concern. 3. At Least mild calcified coronary artery disease. 4. Ectasia of the ascending thoracic aorta measuring 3.5 cm. 5. Mild colonic diverticulosis. Critical Result: Large hiatal hernia with possible Gastric obstruction, large fluid collection in the medial right upper thigh
[2025-05-16 11:17] LABS: Lactic Acid w/Reflex 5.3 mmol/L (0.4-2.0)
[2025-05-16] MEDS ORDERED: SODIUM CHLORIDE 0.9% 1,000 ML IV SCH (11:30)
[2025-05-16] MEDS ORDERED: EPINEPHrine HCL 1 MG/10 ML SYRG IV ONE ×2 (13:00→15:23)
--- NOTE | 2025-05-16 13:05 | ECG ---
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
--- NOTE | 2025-05-16 13:55 | RESUS ---
MICHELLE GOODRICH ASSESSSMENT History of Events History of Events: Per primary nurse Stormy RN, patient was found unresponsive, apneic and pulseless by WOUND TREATMENT RN while rounding. Michelle goodrich called and CPR initiated. Last seen well by physical therapy approximately 30-45 minutes prior. Recently diagnosed with incarcerated hernia. Initial Information Date: May 16, 2025 Time: 12:33 Location of Arrest: [place] (246-A) Arrest Witnessed: No CPR started initial time: 12:33 CPR started by whom: Hospital Staff Last seen well: 1150 Pre-Hospital Care: ACLS Type of arrest: Cardiac, Respiratory, Adult, Unwitnessed Spontaneous Respirations: No Pulse Present: No Monitoring: Telemetry Crash Cart Opened and Supplies: Yes Airway Ventilation Breathing at Onset: Apneic Oxygen Delivery Method: Ambu-Bag Artificial Ventilation: Bag/Mask, Bag/Endo tube Intubation Time: 12:44 Intubation Size: 8.0 cuffed Intubated by: Dr. Garay Intubation Attempts: 2 Intubated orally: Yes Intubated Nasaly: No Tube secured at: 24 Cricoid pressure done: Yes CO2 indicator used: Yes Confirmation: Auscultation, Exhaled CO2 Suctioning (Oral/Tracheal): Yes Circulation Circulation #1: Time: 12:33 Pulse Rate (adult): 0 Blood Pressure Systolic: 0 Circulation #2: Time: 12:45 Pulse Rate (adult): 0 Blood Pressure Systolic: 0 Blood Pressure Diastolic: 0 Temperature (Fahrenheit): 97.4 (Rectal) Circulation #3: Time: 12:51 Pulse Rate (adult): 0 Blood Pressure Systolic: 0 Blood Pressure Diastolic: 0 Defibrillation Defbrillation #1: Time Defibrillator Applied: 12:35 EKG Rhythm: V-Fibrillation Compressions: Manual Time Defibrillator Shocked Pt.: 12:41 Defib. Joules: 120 Pulse Present: No EKG Rhythm: V-Fibrillation Defbrillation #2: EKG Rhythm: V-Fibrillation Compressions: Manual Time Defibrillator Shocked Pt.: 12:45 Defib. Joules: 150 EKG Rhythm: V-Fibrillation Defbrillation #3: EKG Rhythm: V-Fibrillation Compressions: Manual Time Defibrillator Shocked Pt.: 12:50 Defib. Joules: 200 EKG Rhythm: Agonal Procedure - IV Procedure - IV : IV Side: Left IV Location: External Jugular IV Catheter Type: Peripheral IV IV Gauge: 20 IV Line Care: Saline Flush Comment IV placed prior to code blue. See EMR. Procedure - Intraosseous Time of intraosseous: 12:47 Size of intraosseous: 45 Site of Intraosseous: Tibia avril-medial Intraosseous inserted by: Dr. Summers Number of attempts for Intraos: 2 Medications & Response Medications and Responses #1: Medication Time: 12:34 ADULT Medications Given ADULT: Epinephrine 1 mg Route of Administration: IV Heart Rate: 0 EKG Rhythm: Asystole Blood Pressure Systolic: 0 Blood Pressure Diastolic: 0 EKG Rhythm: Asystole Medications and Responses #2: Medication Time: 12:36 ADULT Medications Given ADULT: Sodium Bacarbinate 50 meq Route of Administration: IV Heart Rate: 0 EKG Rhythm: Asystole Blood Pressure Systolic: 0 Blood Pressure Diastolic: 0 EKG Rhythm: Asystole Medications and Responses #3: Medication Time: 12:48 ADULT Medications Given ADULT: Epinephrine 1 mg Route of Administration: IO Heart Rate: 0 EKG Rhythm: Asystole Blood Pressure Systolic: 0 Blood Pressure Diastolic: 0 EKG Rhythm: V-Fibrillation Medications and Responses #4: Medication Time: 12:51 ADULT Medications Given ADULT: Epinephrine 1 mg Route of Administration: IO Heart Rate: 0 EKG Rhythm: Asystole Blood Pressure Systolic: 0 Blood Pressure Diastolic: 0 EKG Rhythm: Asystole Medications and Responses #5: Medication Time: 12:54 ADULT Medications Given ADULT: Epinephrine 1 mg Route of Administration: IO Heart Rate: 0 Blood Pressure Systolic: 0 Blood Pressure Diastolic: 0 EKG Rhythm: Asystole Medications and Responses #6: Medication Time: 12:57 ADULT Medications Given ADULT: Epinephrine 1 mg Route of Administration: IO Heart Rate: 0 Blood Pressure Systolic: 0 Blood Pressure Diastolic: 0 EKG Rhythm: Asystole Nurses Notes [place] Coma Scale Eye Opening: None (1) [place] Coma Scale Verbal: None (1) [place] Coma Scale Motor: None (1) [place] Total: 3 Pupil Reaction: Non Reactive EKG Rhythm: V-Fibrillation, Agonal, Asystole Nurses Notes - Comment: 1237: IV no longer flushing. Unable to use line. Several attempts made to restart with no success. CPR continued. 1247: I/O placed by Dr. Summers. Able to continue with ACLS medications. Time Code Ended Time Code Ended: 13:01 Post Arrest Status: Outcome of code: Unsuccessful Patient pronounced by: Dr. Summers Time patient pronounced: 13:01 Code Team Present: Dr. Summers, Dr. Garay, Dr. Christiansen, Dr. Arguelles, Stormy RN, Amanda RT, Junie RT, Mook RN, Keena RN, Carlitos RN, Alexander URBANA, Lilly RN, Lorenza RT, Edouard URBANA, Jackelin RN Post Resuscitation Neurologica Pupil Size: 4 Comment: Fixed and dilated. Date of Service: May 16, 2025 Billing Provider: LESLIE SUMMERS MD Common Visit Codes: PROCEDURE ONLY Procedure Codes: [id number] CODE Jackelin Hebert May 16, 2025 13:55 LESLIE SUMMERS MD May 16, 2025 17:07
[2025-05-16] MEDS ORDERED: PIPERACILLIN-TAZOB 3.375GM 100 ML IV SCH (14:00)
--- NOTE | 2025-05-16 14:11 | DVHDSRES ---
Discharge Summary Date of Admission Resident Creating Document: RIP JAFFE RESIDENT May 13, 2025 at 22:05 Date of Discharge: May 16, 2025 Admitting Diagnosis #Sepsis due to complicated UTI #Metabolic encepalopathy. #Afib Labs/Diagnostic Data: Laboratory Results Test 05/16/25 09:33 05/16/25 06:11 05/16/25 05:42 05/14/25 07:17 Lactic Acid Level 5.3 mmol/L (0.4-2.0) White Blood Count 19.8 10^3/uL (4.4-10.8) Red Blood Count 3.73 10^6/uL (4.0-5.20) Hemoglobin 10.2 g/dL (12.2-16.2) Hematocrit 31.7 % (36.0-46.0) Mean Corpuscular Volume 85.0 fL (80.0-100.0) Mean Corpuscular Hemoglobin 27.4 pg (28.0-32.0) Mean Corpuscular Hemoglobin Concent 32.2 g/dL (32.0-36.0) Red Cell Distribution Width 14.3 % (11.8-14.3) Platelet Count 394 10^3/uL (140-450) Mean Platelet Volume 10.1 fL (6.9-10.8) Neutrophils (%) (Auto) 85.0 % (37.0-80.0) Lymphocytes (%) (Auto) 7.9 % (10.0-50.0) Monocytes (%) (Auto) 6.0 % (0.0-12.0) Eosinophils (%) (Auto) 0.2 % (0.0-7.0) Basophils (%) (Auto) 0.9 % (0.0-2.0) Neutrophils # (Auto) 16.8 10 ^3/uL (1.6-8.6) Lymphocytes # (Auto) 1.6 10 ^3/uL (0.4-5.4) Monocytes # (Auto) 1.2 10 ^3/uL (0-1.3) Eosinophils # (Auto) 0 10 ^3/uL (0-0.8) Basophils # (Auto) 0.2 10 ^3/uL (0-0.2) Nucleated Red Blood Cells 0.0 % Sodium Level 139 mmol/L (136-145) Potassium Level 3.9 mmol/L (3.5-5.1) Chloride Level 103 mmol/L (98-107) Carbon Dioxide Level 22 mmol/L (20-31) Anion Gap 14 (5-15) Blood Urea Nitrogen 31 mg/dL (9-23) Creatinine 1.42 mg/dL (0.550-1.02) Glomerular Filtration Rate Calc 38 mL/min (>90) BUN/Creatinine Ratio 21.8 (10.0-20.0) Serum Glucose 189 mg/dL (74-106) Calcium Level 9.3 mg/dL (8.7-10.4) Total Bilirubin 0.3 mg/dL (0.2-1.0) Aspartate Amino Transferase (AST) 44 U/L (13-40) Alanine Aminotransferase (ALT) 13 U/L (7-40) Alkaline Phosphatase 202 U/L (46-116) Total Protein 6.9 g/dL (5.7-8.2) Albumin 3.9 g/dL (3.2-4.8) Test 05/13/25 18:27 05/13/25 14:16 05/13/25 14:15 Urine Color [place] (Yellow) Urine Clarity Ex.turbid (Clear) Urine pH 6.0 (5.0-9.0) Urine Specific [place] 1.027 (1.001-1.035) Urine Protein 1+ (Negative) Urine Ketones 1+ (Negative) Urine Blood 3+ /uL (Negative) Urine Nitrite Negative (Negative) Urine Bilirubin Negative (Negative) Urine Urobilinogen 3 mg/dL (Negative) Urine Leukocyte Esterase 3+ /uL (Negative) Urine RBC 35 /hpf (0 - 4) Urine WBC Clumps Present /hpf (None Seen) Urine Microscopic WBC 219 /HPF (0-5) Urine Squamous Epithelial Cells Mod /hpf (<5) Urine Calcium Oxalate Crystals Mod (None Seen) Urine Amorphous Crystals Few /hpf (None Seen) Urine Bacteria Many /hpf (None Seen) Urine Mucus Few (None Seen) Urine Glucose Normal mg/dL (Normal) Troponin I High Sensitivity 14 ng/L (</=34) B-Type Natriuretic Peptide 73.31 pg/mL (0-100) Hemoglobin A1c 5.5 % A1C (<5.7) Direct Bilirubin 0.3 mg/dL (<0.3) Thyroid Stimulating Hormone (TSH) 4.14 uIU/mL (0.55-4.78) Other Laboratory Tests 05/16/25 06:11 05/16/25 05:42 Brief Hx & Hospital Course: Cheryl Singh Is a 79-year-old female with a past medical history of COPD (O2 2 L of oxygen at home) AFib, CVA, and left leg DVT ( diagnosed at [facility] where she was recently hospitalized for it on 05/10/2025). The patient came to the ED from home via EMS with chief complain of 3 days of visual hallucinations. The patient reports seeing animals such as cats, dogs, birds in her room associated with malaise and general weakness. The patient denies fever, chills, diarrhea, dysuria, frequency, nausea, vomiting, abdominal pain, chest pain or shortness of breath. In the ED initial labs showed: WBC: 14.6x10e3/ul. and, lactic acid of 2.1. Vitals: HR: 93, BP: 117/36 mmHg, O2sat 95% in room air and temperature 98.3. UA shows: [place] urine, extremely turbid, urinary protein 1+, ketone 1+, blood 3+, leukocyte esterase 3+, RBC 35, WBC clumps present, WBC 219, squamous epithelial cells moderate, calcium oxalate crystals moderate, amorphous crystals few, urine bacteria many, urine mucus few. The patient was started on Ceftriaxone IV. The initial EKG showed aFib, the patient was initiated on amiodarone and enoxaparin. On past medical history review: COPD for 40 years on 2 L of oxygen at home, AFib, stroke 7 years ago, left leg DVTPast surgical history: Cholecystectomy 1 year ago Family history: Mother and sister had breast cancer Social history: patient used to smoke 2 packs per day for 30 years but has quit 7 years ago, she does not drink anymore but used to occasionally drink wine years ago, she does not take any drugs. Home medication: Eliquis 5 mg, Ellipta inhaler Allergies: Sulfa drugs. Admission course: On 05/14/25, the patient is alert, oriented x3. The patient reported feeling better. VS: BP 112/48mmHg, HR: 121bpm. Repeated EKG showed atrial fibrillation, the patient is still on amiodarone and enoxaparin. The patient will continue in Telemetry. ECHO and BMP were ordered. Blood and urine cultures showed no growth after 24hrs of incubation. We tried to contact the patient's family, the telephone number on records seems disconnected, a social consult was place to try to contact the patient's family. Blood culture showed no growth after 48hrs of incubation. On 05/15/23, the patient reports she is feeling better. VS: BP 128/74mmHg, HR: 79bpm. The patient has converted to sinus rhythm today, HR is 79bpm. Amiodarone drip has been discontinue and has been changed to oral amiodarone. The patient will continue in Telemetry. ECHO report is till pending. Urine Bacterial Culture Preliminary Report: >100,000 CFU/mL Gram Negative Rods Still ruling out pathogens. We tried to contact the patient's family, the telephone number on records seems disconnected, a social consult was place to try to contact the patient's family. The case was discussed with a tending, the patient will need continue her care in a SNF, a PT and social consult was placed. Today 05/16/2025, the patient was evaluated at bed side, VS: 120/47mmHg HR: 103bpm. The patient reported nausea, vomit and abdominal pain. NS 250ml bolus, zofran 4mg, lactic acid, Zocyn IV and CT scan was ordered. The CT scan showed: Large hiatal hernia with possible Gastric obstruction, large fluid collection in the medial right upper thigh. Surgery consult was placed. At 12:30 pm, the patient was unresponsive and in cardiac arrest, fredrick goodrich was called and ACLS was started. Family was contacted over the phone and informed about patient status. After 25 minutes of ACLS, ROS was not achieved and patient was . Patient was pronounced at 1:01 pm. Family (Brother) arrived and he was notified. Consults/Reason for consult Surgery: Critical Result: Large hiatal hernia with possible Gastric obstruction, large fluid collection in the medial right upper thigh. Operations or Procedures PROCEDURE(s): CXR1 - CHEST XRAY 1 VIEW REASON: shortness of breath ORDER NUMBER(s): [id number], ACCESSION NUMBER(s): [id number] CHEST RADIOGRAPH Indication: shortness of breath Technique: Single frontal view of the chest was obtained COMPARISON: CT CHEST WO on DOS: 07/10/24 FINDINGS: Lines and Tubes: None Lungs: Mild diffuse increased prominence of the pulmonary vasculature. No evidence of focal consolidation. Pleura: No effusion. No pneumothorax. Cardiomediastinal contours: Unremarkable Bones: Unremarkable IMPRESSION: 1. Mild diffuse increased prominence of the pulmonary vasculature. EDURE(s): ABPL - CT AB PEL WO CON-NO ORAL OR IV REASON: Abdominal pain ORDER NUMBER(s): [id number], ACCESSION NUMBER(s): [id number] CLINICAL HISTORY: Abdominal pain TECHNIQUE: CT of the abdomen and pelvis was performed without intravenous contrast. This exam was performed according to our departmental dose optimization program. Up-to-date CT equipment and radiation dose reduction techniques are utilized as appropriate. 21.29 CTDI: 21.29 +13.45 DLP: 1538.28 WID: COMPARISON: None FINDINGS: Lower Thorax: Intraosseous hemangioma in the T8 vertebral body. Linear bibasilar scarring and/or atelectasis. Basilar consolidation with air bronchograms in the right lower lobe likely scarring and/or atelectasis. Large hiatal hernia. There is [id number] distention of the stomach herniated into the chest with a caliber change to normal caliber of the stomach in the abdominal cavity.. Normal-sized heart. At least mild coronary artery calcifications partially imaged. Mild ectasia of the ascending thoracic aorta measuring 3.5 cm. Liver and Biliary system: Prior cholecystectomy, otherwise unremarkable. Spleen: Unremarkable. Adrenal Glands and Kidneys: Mild thickening of the bilateral adrenal glands. Small bilateral kidneys. No hydronephrosis or nephrolithiasis. Pancreas and Retroperitoneum: Unremarkable. Aorta and Major Vessels: Aortoiliac vessels are normal in caliber with moderate calcified atherosclerotic plaque. Bowel, Mesentery and Peritoneal space: Normal caliber small and large bowel. There is mild colonic diverticulosis most pronounced distally. No free intraperitoneal air or fluid collection. Pelvis: Urinary bladder is mildly distended. Mild bladder wall thickening. Prior hysterectomy. No pelvic lymphadenopathy. Abdominal wall and Osseous Structures: Multilevel lower thoracic and lumbar spondylosis. There is bony demineralization. There is a large heterogeneous centrally more hypodense peripherally intermediate higher density collection in the medial upper right thigh with moderate surrounding soft tissue stranding, measuring at least 8.7 x 10.9 cm on series 2, image 119. IMPRESSION: 1. Large heterogeneous centrally hypodense peripherally intermediate/ high density collection in the medial upper right thigh with surrounding soft tissue stranding. This could reflect a hematoma or abscess. Evaluation for bleeding is not assessed on noncontrast study. 2. Large hiatal hernia with [id number] distention of the stomach herniated into the chest and a caliber change to normal of the stomach that is in the abdomen. Gastric Obstruction of the hiatal hernia is a concern. 3. At Least mild calcified coronary artery disease. 4. Ectasia of the ascending thoracic aorta measuring 3.5 cm. 5. Mild colonic diverticulosis. Critical Result: Large hiatal hernia with possible Gastric obstruction, large fluid collection in the medial right upper thigh Final Diagnosis/Problems List #Sepsis due to complicated urinary tract infection #Acute Metabolic encephalopathy #AFib wit RVR #History of left leg DVT #Possible Delirium due to UTI and sepsis #COPD, not under exacerbation #Class 1 obesity, BMI 30.7 #Large hiatal hernia with possible Gastric obstruction #Large fluid collection in the medial right upper thigh Hematoma vs abscess Discharge Disposition: at Hospital Discharge Statement: The patient . ASSESSMENT ASSESSMENT Assessment Date of Service: May 16, 2025 Billing Provider: RIP JAFFE Common Visit Codes: 11151-CMX/OBS DISCH DAY >30min RIP AJFFE May 16, 2025 14:11
--- NOTE | 2025-05-16 15:48 | DVHDS2 ---
Summary Date of Admission May 13, 2025 at 22:05 Date and Time of Expiration: May 16, 2025 13:01 Reason for Admission: #Sepsis due to complicated UTI #Metabolic encepalopathy. #Afib Wounds: No pressure ulcers on admission. Labs/Diagnostic Data: Laboratory Results Test 05/16/25 09:33 05/16/25 06:11 05/16/25 05:42 05/14/25 07:17 Lactic Acid Level 5.3 mmol/L (0.4-2.0) White Blood Count 19.8 10^3/uL (4.4-10.8) Red Blood Count 3.73 10^6/uL (4.0-5.20) Hemoglobin 10.2 g/dL (12.2-16.2) Hematocrit 31.7 % (36.0-46.0) Mean Corpuscular Volume 85.0 fL (80.0-100.0) Mean Corpuscular Hemoglobin 27.4 pg (28.0-32.0) Mean Corpuscular Hemoglobin Concent 32.2 g/dL (32.0-36.0) Red Cell Distribution Width 14.3 % (11.8-14.3) Platelet Count 394 10^3/uL (140-450) Mean Platelet Volume 10.1 fL (6.9-10.8) Neutrophils (%) (Auto) 85.0 % (37.0-80.0) Lymphocytes (%) (Auto) 7.9 % (10.0-50.0) Monocytes (%) (Auto) 6.0 % (0.0-12.0) Eosinophils (%) (Auto) 0.2 % (0.0-7.0) Basophils (%) (Auto) 0.9 % (0.0-2.0) Neutrophils # (Auto) 16.8 10 ^3/uL (1.6-8.6) Lymphocytes # (Auto) 1.6 10 ^3/uL (0.4-5.4) Monocytes # (Auto) 1.2 10 ^3/uL (0-1.3) Eosinophils # (Auto) 0 10 ^3/uL (0-0.8) Basophils # (Auto) 0.2 10 ^3/uL (0-0.2) Nucleated Red Blood Cells 0.0 % Sodium Level 139 mmol/L (136-145) Potassium Level 3.9 mmol/L (3.5-5.1) Chloride Level 103 mmol/L (98-107) Carbon Dioxide Level 22 mmol/L (20-31) Anion Gap 14 (5-15) Blood Urea Nitrogen 31 mg/dL (9-23) Creatinine 1.42 mg/dL (0.550-1.02) Glomerular Filtration Rate Calc 38 mL/min (>90) BUN/Creatinine Ratio 21.8 (10.0-20.0) Serum Glucose 189 mg/dL (74-106) Calcium Level 9.3 mg/dL (8.7-10.4) Total Bilirubin 0.3 mg/dL (0.2-1.0) Aspartate Amino Transferase (AST) 44 U/L (13-40) Alanine Aminotransferase (ALT) 13 U/L (7-40) Alkaline Phosphatase 202 U/L (46-116) Total Protein 6.9 g/dL (5.7-8.2) Albumin 3.9 g/dL (3.2-4.8) Test 05/13/25 18:27 05/13/25 14:16 05/13/25 14:15 Urine Color [place] (Yellow) Urine Clarity Ex.turbid (Clear) Urine pH 6.0 (5.0-9.0) Urine Specific [place] 1.027 (1.001-1.035) Urine Protein 1+ (Negative) Urine Ketones 1+ (Negative) Urine Blood 3+ /uL (Negative) Urine Nitrite Negative (Negative) Urine Bilirubin Negative (Negative) Urine Urobilinogen 3 mg/dL (Negative) Urine Leukocyte Esterase 3+ /uL (Negative) Urine RBC 35 /hpf (0 - 4) Urine WBC Clumps Present /hpf (None Seen) Urine Microscopic WBC 219 /HPF (0-5) Urine Squamous Epithelial Cells Mod /hpf (<5) Urine Calcium Oxalate Crystals Mod (None Seen) Urine Amorphous Crystals Few /hpf (None Seen) Urine Bacteria Many /hpf (None Seen) Urine Mucus Few (None Seen) Urine Glucose Normal mg/dL (Normal) Troponin I High Sensitivity 14 ng/L (</=34) B-Type Natriuretic Peptide 73.31 pg/mL (0-100) Hemoglobin A1c 5.5 % A1C (<5.7) Direct Bilirubin 0.3 mg/dL (<0.3) Thyroid Stimulating Hormone (TSH) 4.14 uIU/mL (0.55-4.78) Other Laboratory Tests 05/16/25 06:11 05/16/25 05:42 Brief Hx & Hospital Course: Cheryl Singh Is a 79-year-old female with a past medical history of COPD (O2 2 L of oxygen at home) AFib, CVA, and left leg DVT ( diagnosed at [facility] where she was recently hospitalized for it on 05/10/2025). The patient came to the ED from home via EMS with chief complain of 3 days of visual hallucinations. The patient reports seeing animals such as cats, dogs, birds in her room associated with malaise and general weakness. The patient denies fever, chills, diarrhea, dysuria, frequency, nausea, vomiting, abdominal pain, chest pain or shortness of breath. In the ED initial labs showed: WBC: 14.6x10e3/ul. and, lactic acid of 2.1. Vitals: HR: 93, BP: 117/36 mmHg, O2sat 95% in room air and temperature 98.3. UA shows: [place] urine, extremely turbid, urinary protein 1+, ketone 1+, blood 3+, leukocyte esterase 3+, RBC 35, WBC clumps present, WBC 219, squamous epithelial cells moderate, calcium oxalate crystals moderate, amorphous crystals few, urine bacteria many, urine mucus few. The patient was started on Ceftriaxone IV. The initial EKG showed aFib, the patient was initiated on amiodarone and enoxaparin. On past medical history review: COPD for 40 years on 2 L of oxygen at home, AFib, stroke 7 years ago, left leg DVTPast surgical history: Cholecystectomy 1 year ago Family history: Mother and sister had breast cancer Social history: patient used to smoke 2 packs per day for 30 years but has quit 7 years ago, she does not drink anymore but used to occasionally drink wine years ago, she does not take any drugs. Home medication: Eliquis 5 mg, Ellipta inhaler Allergies: Sulfa drugs. Admission course: Today, 05/14/25 the patient is alert, oriented x3. The patient report feeling better. VS: BP 112/48mmHg, HR: 121bpm. Repeated EKG showed atrial fibrillation, the patient is still on amiodarone and enoxaparin. The patient will continue in Telemetry. ECHO and BMP were ordered. Blood and urine cultures showed no growth after 24hrs of incubation. We tried to contact the patient's family, the telephone number on records seems disconnected, a social consult was place to try to contact the patient's family. Today, the patient was evaluated at bed side, VS: 120/47mmHg HR: 103bpm. The patient reported nausea, vomit and abdominal pain. NS 250ml bolus, zofran 4mg, lactic acid, Zocyn IV and CT scan was ordered. The CT scan showed: Large hiatal hernia with possible Gastric obstruction, large fluid collection in the medial right upper thigh. Surgery consult was placed. At 12:30 pm, the patient was unresponsive and in cardiac arrest, code blue was called and ACLS was started. Family was contacted over the phone and informed about patient status. After 25 minutes of ACLS, ROS was not achieved and patient was . Patient was pronounced at 1:01 pm. Family (Brother) arrived and he was notified. Operations or Procedures PROCEDURE(s): CXR1 - CHEST XRAY 1 VIEW REASON: shortness of breath ORDER NUMBER(s): [id number], ACCESSION NUMBER(s): [id number] CHEST RADIOGRAPH Indication: shortness of breath Technique: Single frontal view of the chest was obtained COMPARISON: CT CHEST WO on DOS: 07/10/24 FINDINGS: Lines and Tubes: None Lungs: Mild diffuse increased prominence of the pulmonary vasculature. No evidence of focal consolidation. Pleura: No effusion. No pneumothorax. Cardiomediastinal contours: Unremarkable Bones: Unremarkable IMPRESSION: 1. Mild diffuse increased prominence of the pulmonary vasculature. EDURE(s): ABPL - CT AB PEL WO CON-NO ORAL OR IV REASON: Abdominal pain ORDER NUMBER(s): [id number], ACCESSION NUMBER(s): [id number] CLINICAL HISTORY: Abdominal pain TECHNIQUE: CT of the abdomen and pelvis was performed without intravenous contrast. This exam was performed according to our departmental dose optimization program. Up-to-date CT equipment and radiation dose reduction techniques are utilized as appropriate. 21.29 CTDI: 21.29 +13.45 DLP: 1538.28 WID: COMPARISON: None FINDINGS: Lower Thorax: Intraosseous hemangioma in the T8 vertebral body. Linear bibasilar scarring and/or atelectasis. Basilar consolidation with air bronchograms in the right lower lobe likely scarring and/or atelectasis. Large hiatal hernia. There is [id number] distention of the stomach herniated into the chest with a caliber change to normal caliber of the stomach in the abdominal cavity.. Normal-sized heart. At least mild coronary artery calcifications partially imaged. Mild ectasia of the ascending thoracic aorta measuring 3.5 cm. Liver and Biliary system: Prior cholecystectomy, otherwise unremarkable. Spleen: Unremarkable. Adrenal Glands and Kidneys: Mild thickening of the bilateral adrenal glands. Small bilateral kidneys. No hydronephrosis or nephrolithiasis. Pancreas and Retroperitoneum: Unremarkable. Aorta and Major Vessels: Aortoiliac vessels are normal in caliber with moderate calcified atherosclerotic plaque. Bowel, Mesentery and Peritoneal space: Normal caliber small and large bowel. There is mild colonic diverticulosis most pronounced distally. No free intraperitoneal air or fluid collection. Pelvis: Urinary bladder is mildly distended. Mild bladder wall thickening. Prior hysterectomy. No pelvic lymphadenopathy. Abdominal wall and Osseous Structures: Multilevel lower thoracic and lumbar spondylosis. There is bony demineralization. There is a large heterogeneous centrally more hypodense peripherally intermediate higher density collection in the medial upper right thigh with moderate surrounding soft tissue stranding, measuring at least 8.7 x 10.9 cm on series 2, image 119. IMPRESSION: 1. Large heterogeneous centrally hypodense peripherally intermediate/ high density collection in the medial upper right thigh with surrounding soft tissue stranding. This could reflect a hematoma or abscess. Evaluation for bleeding is not assessed on noncontrast study. 2. Large hiatal hernia with [id number] distention of the stomach herniated into the chest and a caliber change to normal of the stomach that is in the abdomen. Gastric Obstruction of the hiatal hernia is a concern. 3. At Least mild calcified coronary artery disease. 4. Ectasia of the ascending thoracic aorta measuring 3.5 cm. 5. Mild colonic diverticulosis. Critical Result: Large hiatal hernia with possible Gastric obstruction, large fluid collection in the medial right upper thigh Final Diagnosis/Problems List #Sepsis due to complicated urinary tract infection #Acute Metabolic encephalopathy #AFib wit RVR #History of left leg DVT #Possible Delirium due to UTI and sepsis #COPD, not under exacerbation #Class 1 obesity, BMI 30.7 #Large hiatal hernia with possible Gastric obstruction #Large fluid collection in the medial right upper thigh Hematoma vs abscess Secondary Diagnosis: #Sepsis due to complicated urinary tract infection #Acute Metabolic encephalopathy #AFib wit RVR #History of left leg DVT #Possible Delirium due to UTI and sepsis #COPD, not under exacerbation #Class 1 obesity, BMI 30.7 #Large hiatal hernia with Gastric obstruction #Large fluid collection in the medial right upper thigh Hematoma vs absces. Discharge Disposition: at Hospital 25 Date of Service: May 16, 2025 Billing Provider: LESLIE GIRARD MD Common Visit Codes: 56435-SKL/OBS DISCH DAY >30min RIP JAFFE RESIDENT May 16, 2025 15:48 LESLIE GIRARD MD May 16, 2025 17:10
== END 2025-05-16 13:01 | DRG 871 ==
LOC: ER 13:51 → EDBD 13:51 → OVERFLOW 22:05 → EAST 05-14 17:30 → TELE-EAST 05-16 07:58
PROVIDERS: ADMIT Internal Medicine; ATTEND Internal Medicine
PROC: 5A12012 Performance of Cardiac Output, Single, Manual (ICD-10-PCS; principal; 2025-05-16)
DX: A41.9 Sepsis, unspecified organism (principal); G93.41 Metabolic encephalopathy; N39.0 Urinary tract infection, site not specified; L02.415 Cutaneous abscess of right lower limb; J44.9 Chronic obstructive pulmonary disease, unspecified; E66.811 Obesity, class 1; R73.9 Hyperglycemia, unspecified; I46.9 Cardiac arrest, cause unspecified; S70.11XA Contusion of right thigh, initial encounter; K44.9 Diaphragmatic hernia without obstruction or gangrene; X58.XXXA Exposure to other specified factors, initial encounter; I48.91 Unspecified atrial fibrillation; Z68.30 Body mass index [BMI] 30.0-30.9, adult; Z79.01 Long term (current) use of anticoagulants; Z80.3 Family history of malignant neoplasm of breast; Z86.718 Personal history of other venous thrombosis and embolism; Z86.73 Personal history of transient ischemic attack (TIA), and cerebral infarction without residual deficits; Z87.891 Personal history of nicotine dependence; Z88.2 Allergy status to sulfonamides; Y93.89 Activity, other specified; Y92.89 Other specified places as the place of occurrence of the external cause; Y99.8 Other external cause status
CPT/HCPCS: 36415; 71045; 74176; 80048; 80053; 80076; 81001; 83036; 83605; 83880; 84443; 84484; 85025; 87040; 87086; 87088; 87186; 92950; 93005; 93306; 96365; 96375; 97163; G0378; J2405; J3470